=== PATIENT | female | born 1970 | race Two or more races ===

== ENCOUNTER → 2017-07-13 | Outpatient (CLI) | payer OTHER | LOC: BRMIMAGING 09:40 | PROVIDERS: ATTEND Family Medicine | DX: R51 Headache (principal) | CPT/HCPCS: 70220-PO ==

== ENCOUNTER 2018-08-08 18:55 | Emergency (ER) | payer OTHER ==
[2018-08-08 19:14] VITALS: BP 111/79
[2018-08-08] MEDS ORDERED: TDAP ADULT 0.5 ML INJ (BOOSTRIX) IM ONE (19:14)
--- NOTE | 2018-08-08 19:14 | EDPHY ---
H & P Time Seen by Provider: 08/08/18 19:12 HPI/ROS: CHIEF COMPLAINT: Finger laceration HISTORY OF PRESENT ILLNESS: The patient is a 47-year-old female who was cutting bread and accidentally cut the tip of her left ring finger. This happened just prior to arrival. She denies other injuries. It does partially involve the fingernail. Severity: Moderate Modifying factors: None REVIEW OF SYSTEMS: Constitutional: denies: chills, fever, recent illness, recent injury EENTM: denies: blurred vision, double vision, nose congestion Respiratory: denies: cough, shortness of breath Cardiac: denies: chest pain, irregular heart rate, lightheadedness, palpitations Gastrointestinal/Abdominal: denies: abdominal pain, diarrhea, nausea, vomiting, blood streaked stools Genitourinary: denies: dysuria, frequency, hematuria, pain Musculoskeletal: denies: joint pain, muscle pain Skin: See HPI Neurological: denies: headache, numbness, paresthesia, tingling, dizziness, weakness Hematologic/Lymphatic: denies: blood clots, easy bleeding, easy bruising Immunologic/allergic: denies: HIV/AIDS, transplant 10 systems reviewed and negative except as noted EXAM: GENERAL: Well-appearing, well-nourished and in no acute distress. HEAD: Atraumatic, normocephalic. EYES: Pupils equal round and reactive to light, extraocular movements intact, sclera anicteric, conjunctiva are normal. ENT: TMs normal, nares patent, oropharynx clear without exudates. Moist mucous membranes. NECK: Normal range of motion, supple without lymphadenopathy or JVD. LUNGS: Breath sounds clear to auscultation bilaterally and equal. No wheezes rales or rhonchi. HEART: Regular rate and rhythm without murmurs, rubs or gallops. ABDOMEN: Soft, nontender, normoactive bowel sounds. No guarding, no rebound. No masses appreciated. BACK: No CVA tenderness, no spinal tenderness, step-offs or deformities EXTREMITIES: Normal range of motion, no pitting or edema. No clubbing or cyanosis. NEUROLOGICAL: Cranial nerves II through XII grossly intact. Normal speech, normal gait. 5/5 strength, normal movement in all extremities, normal sensation , normal reflexes PSYCH: Normal mood, normal affect. SKIN: Small laceration to tip of left ring finger. It does involve the distal aspect of the finger nail or nail bed. No bony involvement. Source: Patient, Family Exam Limitations: No limitations - Personal History Current Tetanus/Diphtheria Vaccine: No - Medical/Surgical History Hx Asthma: No Hx Chronic Respiratory Disease: No Hx Diabetes: No Hx Cardiac Disease: No Hx Renal Disease: No Hx Cirrhosis: No Hx Alcoholism: No - Family History Significant Family History: No pertinent family hx - Social History Smoking Status: Never smoked Alcohol Use: Sober Drug Use: None Constitutional: Initial Vital Signs Temperature (C) 36.7 C 08/08/18 19:05 Heart Rate 80 08/08/18 19:05 Respiratory Rate 16 08/08/18 19:05 Blood Pressure 111/79 08/08/18 19:05 O2 Sat (%) 95 08/08/18 19:05 O2 Delivery Mode Room Air Allergies/Adverse Reactions: No Known Allergies Allergy (Unverified 08/08/18 19:10) Home Medications: Medication Instructions Recorded NK [No Known Home Meds] 08/08/18 Medical Decision Making Procedures: Procedure: Laceration repair. Verbal consent was obtained from the patient. The 1 cm finger tip laceration was anesthetized with 0.5% bupivacaine digital block. The wound was irrigated copiously according to protocol, draped and explored to its base. It was approximately 1/2 cm deep. There were no deep structures involved. No tendon, nerve, or vascular injury was identified when explored. No foreign body was identified. The wound was repaired with 5.0 gut, 3 sutures, interrupted. I did remove the very distal aspect of the nail. 1 of the sutures was partially into the nail bed. The wound repair was moderately complex. The procedure was performed by myself. A dressing was then placed with sterile gauze. ED Course/Re-evaluation: I did remove the distal part of the patient's fingernail to repair the nail bed injury. It did not require completely removal. Patient tolerated the procedure well. We discussed suture care and follow-up. We discussed work restrictions. Differential Diagnosis: Partial list of the Differential diagnosis considered include but were not limited to; laceration, avulsion, nail bed injury, crush injury and although unlikely based on the history and physical exam, I also considered fracture, infection. I discussed these differential diagnoses and the plan with the patient as well as the usual and expected course. The patient understands that the diagnosis is provisional and that in medicine we are not always correct and that further workup is often warranted. Usual and customary warnings were given. All of the patient's questions were answered. The patient was] instructed to return to the emergency department should the symptoms at all worsen or return, otherwise to followup with the physician as we discussed. - Data Points Medications Given: Discontinued Medications Diphtheria/Tetanus/Acell Pertussis (Boostrix) 0.5 ml IM .ONCE ONE Stop: 08/08/18 19:15 Last Admin: 08/08/18 19:50 Dose: 0.5 ml Departure - Departure Disposition: Home, Routine, Self-Care Clinical Impression: Left finger tip laceration Condition: Fair Instructions: Laceration (ED), Care For Your Absorbable Stitches (ED) Additional Instructions: Your stitches should dissolve in the next 5-6 days. If they do not return to have them removed. Referrals: NONE *PRIMARY CARE P,. [Primary Care Provider] - As per Instructions Dejuan Lakhani MD [[facility] [place] Primary Care Provider] - As per Instructions
== END 2018-08-08 19:55 | disposition home or self-care (01) ==
LOC: CED 18:55
DX: S61.315A Laceration without foreign body of left ring finger with damage to nail, initial encounter (principal); W26.0XXA Contact with knife, initial encounter; Y93.G1 Activity, food preparation and clean up; Y92.000 Kitchen of unspecified non-institutional (private) residence as the place of occurrence of the external cause; Z23 Encounter for immunization